=== PATIENT | female | born 1990 | race Caucasian/White ===

== ENCOUNTER → 2020-05-26 13:59 | Outpatient (BNVA) | payer BC, SELFPAY | PROVIDERS: PCP Nurse Practitioner Family; Visit Provider Nurse Practitioner Family | DX: R23.2 Flushing (principal); E55.9 Vitamin D deficiency, unspecified | CPT/HCPCS: 80053; 82306; 82607; 83001; 84439; 84443; 84481; 85025 ==

== ENCOUNTER → 2021-03-16 14:22 | Outpatient (BNVA) | payer BC, SELFPAY | PROVIDERS: PCP Nurse Practitioner Family; Visit Provider Nurse Practitioner Women's Health | DX: N92.3 Ovulation bleeding (principal); D64.9 Anemia, unspecified; Z30.9 Encounter for contraceptive management, unspecified | CPT/HCPCS: 84443; 85025; 87624 ==

== ENCOUNTER → 2021-05-12 11:06 | Outpatient (BNVA) | payer BC, SELFPAY | PROVIDERS: PCP Nurse Practitioner Family; Visit Provider Dermatology | DX: L40.0 Psoriasis vulgaris (principal); Z79.899 Other long term (current) drug therapy | CPT/HCPCS: 80053 ==

== ENCOUNTER → 2021-10-12 16:42 | Outpatient (BNVA) | payer BC, SELFPAY | PROVIDERS: PCP Nurse Practitioner Family; Visit Provider Nurse Practitioner Family | DX: D64.9 Anemia, unspecified (principal); R53.1 Weakness; R53.83 Other fatigue | CPT/HCPCS: 80053; 83550; 84443 ==

== ENCOUNTER → 2023-02-03 10:27 | Outpatient (BNVA) | payer BC, SELFPAY | PROVIDERS: PCP Nurse Practitioner Family; Visit Provider Dermatology | DX: L40.9 Psoriasis, unspecified (principal); L70.0 Acne vulgaris; Z79.899 Other long term (current) drug therapy | CPT/HCPCS: 80048; 80061; 80076; 83721; 85025; 86480; 86704; 86706; 87340 ==

== ENCOUNTER → 2023-03-15 10:17 | Outpatient (BNVA) | payer BC, SELFPAY | PROVIDERS: PCP Nurse Practitioner Family; Visit Provider Nurse Practitioner Family | DX: R19.7 Diarrhea, unspecified (principal) | CPT/HCPCS: 87045; 87177; 87209; 87338; 87427; 87449; 87493 ==

== ENCOUNTER 2023-03-20 06:33 | Outpatient (CLI) | payer BC, SELFPAY ==
--- NOTE | 2023-03-20 07:00 | US_ITS ---
WS: [id number] Complete ABDOMINAL ULTRASOUND HISTORY: R11.0 - Nausea COMPARISON: 11/10/2011, MRI 09/09/2015 Liver: 13.9 cm in length. Normal size liver. There are 2 cysts within the liver towards the diaphragm atic surface. The largest is 2.0 cm. These appear to be cystic masses. Small hemangiomas were thought to be present on the prior MRI from 2016. Hemangiomas are not identified. No solid mass. No bile dharmesh t dilatation. Portal Vein: Normal hepatopetal flow with monophasic waveform. Gallbladder: Normally distended gallbladder with no stones or wall thickening. CBD: 0.4 cm Pancreas: Normal size and echogenicity. Right kidney: 9.9 cm x 4.9 x 4.7 cm. Cortex:1.0 cm. Normal size kidney. Cortical cyst upper pole measures 1.2 x 1.4 x 1.3 cm. Left kidney: 10.1 cm x 4.5 cm x 4.8 cm. Cortex: 1.2 cm. Normal size and echogenicity. No hydronephrosis or mass. Spleen: Normal. Aorta and IVC: Unremarkable abdominal aorta and IVC. Impression: 1. Normal gallbladder. 2. Hepatic and RIGHT renal cyst. No solid masses. 3. Otherwise negative abdomen ultrasound.
== END 2023-03-20 06:34 | disposition home or self-care (01) ==
PROVIDERS: PCP Nurse Practitioner Family; Visit Provider Nurse Practitioner Family
DX: R11.0 Nausea (principal)
CPT/HCPCS: 76700

== ENCOUNTER 2024-04-22 08:36 | Emergency (ER) | payer BC, SELFPAY ==
[2024-04-22 08:53] VITALS: BP 116/80; PULSE 97; RESP 17; TEMP 36.7; O2SAT 100
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
[2024-04-22 09:42] VITALS: PULSE 79; O2SAT 99
== END 2024-04-22 09:43 | disposition home or self-care (01) ==
PROVIDERS: Emergency Provider Physician Assistant; PCP Nurse Practitioner Family
DX: Z04.1 Encounter for examination and observation following transport accident (principal)
CPT/HCPCS: 99281

== ENCOUNTER → 2024-06-05 14:05 | Outpatient (BNVA) | payer BC, SELFPAY | PROVIDERS: PCP Nurse Practitioner Family; Visit Provider Nurse Practitioner Family | DX: R53.83 Other fatigue (principal); R00.0 Tachycardia, unspecified | CPT/HCPCS: 80053; 82306; 83540; 84443; 85025 ==

== ENCOUNTER → 2024-06-10 14:07 | Outpatient (BNVA) | payer BC, SELFPAY | PROVIDERS: PCP Nurse Practitioner Family; Visit Provider Nurse Practitioner Family | DX: M54.6 Pain in thoracic spine (principal) | CPT/HCPCS: 72072 ==